=== PATIENT | male | born 1990 | race American Indian/Alaskan Native ===

== ENCOUNTER 2017-02-11 17:59 | Emergency (ER) | payer OTHER ==
[2017-02-11 18:51] LABS: Basophils % (Auto) 0.4 % (0.0-1.8); Eosinophils % (Auto) 1.3 % (0.0-4.3); Hematocrit 46.3 % (35.5-45.6); Mean Corpuscular HGB Conc 32 % (32-34); Mean Corpuscular Hemoglobin 28 pg (28-32); Mean Corpuscular Volume 88 fl (84-94); Platelet Count 305 K/mm3 (140-440); Red Blood Count 5.29 M/mm3 (3.65-5.03); Red Cell Distribution Width 14.1 % (13.2-15.2); White Blood Count 11.4 K/mm3 (4.5-11.0)
[2017-02-11 18:53] LABS: Alanine Aminotransferase 27 units/L (7-56); Albumin/Globulin Ratio 1.2 %; Alkaline Phosphatase 70 units/L (35-129); Anion Gap 17 mmol/L; BUN/Creatinine Ratio 9; Blood Urea Nitrogen 7 mg/dL (9-20); Calcium 9.1 mg/dL (8.4-10.2); Carbon Dioxide 26 mmol/L (22-30); Chloride 103.2 mmol/L (98-107); Glucose 115 mg/dL (75-100); Lipase 12 units/L (13-60); Potassium 5.4 mmol/L (3.6-5.0); Sodium 141 mmol/L (137-145); Total Protein 7.3 g/dL (6.3-8.2)
[2017-02-11 21:33] LABS: Bilirubin,Urine NEG (Negative); Blood,Urine NEG (Negative); Ketones,Urine NEG (Negative); Leukocyte Esterase,Urine TR (Negative); Mucus,Urine FEW /HPF; Nitrite,Urine NEG (Negative); Protein,Urine <15 mg/dL mg/dL (Negative); Urobilinogen,Urine < 2.0 mg/dL (<2.0)
[2017-02-12 00:48] VITALS: BP 125/85
== END 2017-02-12 01:00 | disposition left against medical advice (07) ==
LOC: ED 17:59
DX: R10.30 Lower abdominal pain, unspecified (principal); Z53.21 Procedure and treatment not carried out due to patient leaving prior to being seen by health care provider
CPT/HCPCS: 36415; 80053; 81001; 83690; 85025

== ENCOUNTER 2017-02-12 03:33 | Emergency (ER) | payer OTHER ==
[2017-02-12] MEDS ORDERED: NACL 0.9% 1000 ML 1,000 ML IV ONE (06:56)
[2017-02-12] MEDS ORDERED: TORADOL IV ONE (06:58)
[2017-02-12] MEDS ORDERED: IMODIUM PO ONE (06:58)
--- NOTE | 2017-02-12 07:23 | Emergency Department Report ---
ED N/V/D HPI - General Chief complaint: Abdominal Pain Stated complaint: ABD PAIN Time Seen by Provider: 02/12/17 06:46 Source: patient, old records reviewed (patient was here last night left and returned) Mode of arrival: Ambulatory Limitations: No Limitations - History of Present Illness Initial comments: 26-year-old male with no significant past medical surgical history presents to the hospital. Pain, nausea, vomiting, and diarrhea 5 days. Patient has vomited 2 times since onset of a course of 4 episodes of diarrhea daily. He denies blood in his stool, fever, sick contacts, recent travel, or recent antibiotic use. Patient complains of intermittent throbbing suprapubic pain that is moderate in intensity and without aggravating or alleviating factors. Patient is able to tolerate by mouth intake but states it stimulates diarrhea episodes. - Related Data Previous Rx's Medication Instructions Recorded Last Taken Type Loperamide [Imodium] 2 mg PO Q2HR #15 capsule 02/12/17 Unknown Rx Ondansetron [Zofran Odt] 4 mg PO Q8HR PRN #20 tab.rapdis 02/12/17 Unknown Rx traMADol [Ultram 50 MG tab] 50 mg PO Q6HR PRN #20 tablet 02/12/17 Unknown Rx Allergies Allergy/AdvReac Type Severity Reaction Status Date / Time No Known Allergies Allergy Unverified 02/11/17 18:11 ED Review of Systems ROS: Stated complaint: ABD PAIN Other details as noted in HPI Comment: All other systems reviewed and negative Other: Constitutional: No fevers chills Eyes: No eye pain visual changes ENT: No ear pain or throat pain Neck: Denies pain Respiratory: Denies cough wheezing shortness of breath Cardiovascular: Denies chest pain, palpitations, syncope GI: As per HPI : Denies dysuria, urinary frequency, or urgency Musculoskeletal: Denies back pain, joint swelling Skin: Denies rash, lesions, erythema Neurologic: Denies headache, numbness, weakness Psychiatric: Denies suicidal ideation, hallucinations ED Past Medical Hx - Past Medical History Previous Medical History?: No - Surgical History Past Surgical History?: No - Social History Smoking Status: Current Every Day Smoker Substance Use Type: None - Medications Home Medications: Home Medications Medication Instructions Recorded Confirmed Last Taken Type Loperamide [Imodium] 2 mg PO Q2HR #15 capsule 02/12/17 Unknown Rx Ondansetron [Zofran Odt] 4 mg PO Q8HR PRN #20 tab.rapdis 02/12/17 Unknown Rx traMADol [Ultram 50 MG tab] 50 mg PO Q6HR PRN #20 tablet 02/12/17 Unknown Rx ED Physical Exam - General Limitations: No Limitations - Other Other exam information: General: No limitations, patient is alert in no acute distress Head exam: Atraumatic, normocephalic Eyes exam: Normal appearance, pupils equal reactive to light, extraocular movements intact ENT: Moist mucous membrane, normal oropharynx Neck exam: Normal inspection, full range of motion, no meningismus nontender Respiratory exam: Clear to auscultation bilateral, no wheezes, rales, crackles Cardiovascular: Normal rate and rhythm, normal heart sounds Abdomen: Soft, nondistended, and nontender, with normal bowel sounds, no rebound, or guarding Extremity: Full range of motion normal inspection no deformity Back: Normal Inspection, full range of motion, no tenderness Neurologic: Alert, oriented x3, cranial nerves intact, no motor or sensory deficit Psychiatric: normal affect, normal mood Skin: Warm, dry, intact ED Course Vital Signs 02/12/17 02/12/17 02/12/17 03:42 04:58 05:00 Temperature 97.9 F 98.2 F Pulse Rate 81 72 Respiratory 20 16 Rate Blood Pressure 116/76 122/75 Blood Pressure 128/77 [Left] O2 Sat by Pulse 98 100 96 Oximetry 02/12/17 02/12/17 02/12/17 06:00 07:00 08:00 Temperature Pulse Rate 88 Respiratory 21 Rate Blood Pressure 132/91 124/73 110/60 Blood Pressure [Left] O2 Sat by Pulse 98 98 99 Oximetry - Reevaluation(s) Reevaluation #1: 02/12/17 07:23 Toradol, normal saline ordered. Repeat labs pending ED Medical Decision Making - Lab Data Result diagrams: 02/12/17 06:56 Laboratory Results - last 24 hr 02/12/17 02/12/17 06:56 07:16 Sodium 139 Potassium 4.4 Chloride 101.9 Carbon Dioxide 28 Anion Gap 14 BUN 8 L Creatinine 0.9 Estimated GFR > 60 BUN/Creatinine Ratio 9 Glucose 89 Calcium 8.9 Urine Color Yellow Urine Turbidity Clear Urine pH 5.0 Ur Specific [place] 1.031 H Urine Protein <15 mg/dl Urine Glucose (UA) Neg Urine Ketones Neg Urine Blood Neg Urine Nitrite Neg Urine Bilirubin Neg Urine Urobilinogen < 2.0 Ur Leukocyte Esterase Sm Urine WBC (Auto) 50.0 H Urine RBC (Auto) 7.0 U Epithel Cells (Auto) 1.0 Urine Mucus 1+ labs from yesterday reviewed, Hyperkalemia improved on repeat, wbc increased on repeat - Medical Decision Making Patient's repeat UA reveal increased WBC cells. Initial UA reveal calcium oxalate crystals however, patient does not have any unilateral flank pain, hematuria, or persistent nausea and vomiting suggestive of acute renal colic. Patient admits to be sexually active with new partners unprotected but denies urinary symptoms or discharge. Given elevated wbc count in a male less than 35 patient will be covered with Rocephin and Zithromax for gonorrhea and chlamydia while culture is pending. UA also revealed elevated specific gravity without ketosis and patient received 1 L normal saline in the ED. Patient also received Toradol and Imodium. No acute distress and patient reports feeling better. Patient tolerating by mouth intake - Differential Diagnosis appendicitis, diverticulitis, gastroenteritis, inflammatory bowel disease Critical Care Time: No Critical care attestation.: If time is entered above; I have spent that time in minutes in the direct care of this critically ill patient, excluding procedure time. ED Disposition Clinical Impression: Gastroenteritis, Urethritis Disposition: DC-01 TO HOME OR SELFCARE Is pt being admited?: No Does the pt Need Aspirin: No Condition: Stable Instructions: Nonspecific Urethritis in Men (ED), Gastroenteritis (ED) Additional Instructions: Take the medications as prescribed. You were treated today for gonorrhea and chlamydia given the elevated white blood cell count in your urine. Your gonorrhea and chlamydia tests are pending and take approximately 3-4 days result. You may obtain results in medical records with a photo ID. You may also obtain results through the follow-up doctor office via medical record request. If positive then your sexual partners also need treatment. Prescriptions: Loperamide [Imodium] 2 mg PO Q2HR #15 capsule Ondansetron [Zofran Odt] 4 mg PO Q8HR PRN #20 tab.rapdis PRN Reason: Nausea And Vomiting traMADol [Ultram 50 MG tab] 50 mg PO Q6HR PRN #20 tablet PRN Reason: Pain Referrals: BLAIR ROBLES MD [Staff Physician] - 3-5 Days Forms: STI Treatment and Prevention Time of Disposition: 10:44
[2017-02-12 07:25] LABS: Anion Gap 14 mmol/L; BUN/Creatinine Ratio 9; Blood Urea Nitrogen 8 mg/dL (9-20); Calcium 8.9 mg/dL (8.4-10.2); Carbon Dioxide 28 mmol/L (22-30); Chloride 101.9 mmol/L (98-107); Glucose 89 mg/dL (75-100); Potassium 4.4 mmol/L (3.6-5.0); Sodium 139 mmol/L (137-145)
[2017-02-12 08:05] LABS: Bilirubin,Urine NEG (Negative); Blood,Urine NEG (Negative); Ketones,Urine NEG (Negative); Leukocyte Esterase,Urine SM (Negative); Mucus,Urine 1+ /HPF; Nitrite,Urine NEG (Negative); Protein,Urine <15 mg/dL mg/dL (Negative); Urobilinogen,Urine < 2.0 mg/dL (<2.0)
[2017-02-12] MEDS ORDERED: ZITHROMAX PO ONE (08:47)
[2017-02-12] MEDS ORDERED: ROCEPHIN 250 MG in NACL 0.9% 50 ML IV ONE (09:30)
[2017-02-12 11:07] VITALS: BP 112/52
== END 2017-02-12 11:07 | disposition home or self-care (01) ==
LOC: ED 03:33
DX: K52.9 Noninfective gastroenteritis and colitis, unspecified (principal); N34.2 Other urethritis; F17.210 Nicotine dependence, cigarettes, uncomplicated
CPT/HCPCS: 36415; 80048; 81001; 87086; 87591; 96361; 96365; 96375; 99283; J0696; J1885; J7030